=== PATIENT | male | born 1980 | race Caucasian/White ===

== ENCOUNTER 2022-10-20 13:40 | Emergency (ER) | payer BC ==
[~2022-10-20] VITALS: Ht 172.7 cm; Wt 108.9 kg
[2022-10-20 14:15] VITALS: BP_SYST 136
[2022-10-20] MEDS ORDERED: IBUP-1971 PO (15:05)
[2022-10-20] MEDS ORDERED: AMOX-423 PO (15:05)
[2022-10-20 15:10] VITALS: BP_SYST 136
== END 2022-10-20 15:10 | disposition home or self-care (01) ==
LOC: SED 13:40
DX: H66.93 Otitis media, unspecified, bilateral (principal); H92.03 Otalgia, bilateral; R05.9 Cough, unspecified; J02.9 Acute pharyngitis, unspecified; Z79.899 Other long term (current) drug therapy
CPT/HCPCS: 71045; 99283